=== PATIENT | male | born 1975 | race Caucasian/White ===

== ENCOUNTER 2023-01-19 10:46 | Outpatient (RCR) | payer OTHER, SELFPAY ==
--- NOTE | 2023-01-19 11:58 | PTOPEVAL1 ---
Assessment and note entered by James Griffith Evaluation Information Assessment Status Evaluation Diagnosis left shoulder pain Onset 08/01/22 Subjective Information Pt. reports that he underwent surgery for the carotid artery on 08/01/22. He states that after waking from surgery he could not raise the left arm. He states that he has pain that will shoot down the arm when reaching for his door handle in the car. Pt. reports that he visited with [facility] specialist last week who thought the pt. suffered a brachial plexus injury. 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 Pt. states that he is right hand dominant. He states that he does have some pain with sleeping on the left side. He reports that his goal is to improve the strength of the left arm and to be able to reach overhead. Reported Pain Level Pain Score 2: Self Report Assessment PT Clinical Summary Pt. is a 47 year old male who enters the clinic with left shoulder pain and possible brachial plexus injury. Pt. presents with signficant scapular dyskinesia and noted weakness of the scapular stabilizers on this date. Continued skilled PT is indicated in order to address cervical spine ROM, proximal left u.e. strength and pain reduction. Plan of Care Interventions Electrical Stimulation,Hot Pack/Cold Pack,Manual Therapy,Neuro Re-education,Patient/Caregiver Educati,Therapeutic Activities,Therapeutic Exercise PT Services Indicated Yes Treatment Frequency and 2x/week x 10 visits Duration These treatments will address the objective and functional deficits as defined above. The patient will be advanced safely and appropriately in order for the patient to progress towards his/her prior level of function. Additional exercises will be introduced and as well as a comprehensive home exercise program upon discharge, if needed, ?to ensure carryover of functional gains achieved in the clinic. This treatment plan has been reviewed and agreement upon by the patient.
--- NOTE | 2023-01-19 12:49 | OPREHPOC ---
Outpatient Therapy Plan of Care This is a Multidisciplinary Plan of Care that may contain components documented by all disciplines (PT, OT, and ST.) PT Problem 1 PT Problem #1 Knowledge Deficit PT Goal 1 Goal Independent with a HEP addressing strength and postural awareness Target Visit 2 PT Problem 2 PT Problem #2 Pain PT Goal 1 Goal Reduce pain to 1/10 at worst with all IADL's Target Visit 10 PT Problem 3 PT Problem #3 Impaired Strength PT Goal 1 Goal Pt. will demonstrate 4+/5 gross left shoulder and scapular strength. 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 Target Visit 10
--- NOTE | 2023-02-18 14:56 | OPREHPOC ---
Outpatient Therapy Plan of Care This is a Multidisciplinary Plan of Care that may contain components documented by all disciplines (PT, OT, and ST.) PT Problem 1 PT Problem #1 Knowledge Deficit PT Goal 1 Goal Independent with a HEP addressing strength and postural awareness Target Visit 2 Progress Met PT Problem 2 PT Problem #2 Pain PT Goal 1 Goal Reduce pain to 1/10 at worst with all IADL's Target Visit 10 Progress Partially Met PT Problem 3 PT Problem #3 Impaired Strength PT Goal 1 Goal Pt. will demonstrate 4+/5 gross left shoulder and scapular strength. 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 Target Visit 10 Progress Not Met
--- NOTE | 2023-02-18 14:56 | PTOPPROGNS ---
Assessment and note entered by JT File, PT Evaluation Information Assessment Status Progress Diagnosis left shoulder pain Onset 08/01/22 Subjective Information patient reports 0/10 pain at rest today, and a highest pain of 2/10 in the shoulder in the last week. he reports feeling therapy has been helping since his initial evaluation. Assessment PT Clinical Summary mr. ca presents to skilled PT for his 10th skilled therapy visit today. as of this date, he had made progress in improving shoulder rom and strength, but continues to have pain with lifting the L arm to his side overhead. he has met goal for HEP performance, but continues to lack achievement of remaining goals for skilled PT. however, he has made progress in all other goals. he would benefit from continued skilled PT to address his remaining objective/functional deficits to achieve remaining goals, and return to his prior level functional activity performance and quality of life. Plan of Care Interventions Electrical Stimulation,Hot Pack/Cold Pack,Manual Therapy,Neuro Re-education,Patient/Caregiver Educati,Therapeutic Activities,Therapeutic Exercise PT Services Indicated Yes Treatment Frequency and continue skilled PT 2x weekly for remaining 2 Duration visits on initial POC These treatments will address the objective and functional deficits as defined above. The patient will be advanced safely and appropriately in order for the patient to progress towards his/her prior level of function. Additional exercises will be introduced and as well as a comprehensive home exercise program upon discharge, if needed, ?to ensure carryover of functional gains achieved in the clinic. This treatment plan has been reviewed and agreement upon by the patient.
--- NOTE | 2023-02-25 09:15 | OPREHPOC ---
Outpatient Therapy Plan of Care This is a Multidisciplinary Plan of Care that may contain components documented by all disciplines (PT, OT, and ST.) PT Problem 1 PT Problem #1 Knowledge Deficit PT Goal 1 Goal Independent with a HEP addressing strength and postural awareness Target Visit 2 Progress Met PT Problem 2 PT Problem #2 Pain PT Goal 1 Goal Reduce pain to 1/10 at worst with all IADL's Target Visit 16 Progress Partially Met PT Problem 3 PT Problem #3 Impaired Strength PT Goal 1 Goal Pt. will demonstrate 4+/5 gross left shoulder and scapular strength. 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 Target Visit 16 Progress Not Met Comment continue
--- NOTE | 2023-02-25 09:16 | PTOPREEVAL ---
Assessment and note entered by JT File, PT Evaluation Information Assessment Status Re-evaluation Diagnosis left shoulder pain Onset 08/01/22 Subjective Information patient reports he is doing better overall, but continues to have pain in the L Shoulder with raising to arm to his side. he reports he also continues to have tingling in the L UE down to the middle fingers of the L hand. Reported Pain Level Pain Score 2,2: Self Report Assessment PT Clinical Summary mr. ca presents to skilled PT services today for his 12th skilled therapy visit. patient has improved L shoulder rom, maintained cervical rom, improved L shoulder/UE strength, and reports decreased pain/symptoms overall. he continues to display signs and symptoms of L cervical radiculopathy and L RTC syndrome with weakness in the L shoulder/UE, paresthesias in the L arm, and positive shoulder and cervical special testing. he would benefit from continue skilled PT given the amount of progress he has made thus farin skilled PT. 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 Plan of Care Interventions Electrical Stimulation,Hot Pack/Cold Pack,Manual Therapy,Neuro Re-education,Patient/Caregiver Educati,Therapeutic Activities,Therapeutic Exercise PT Services Indicated Yes Treatment Frequency and continue skilled PT 2x weekly for 6 more visits Duration These treatments will address the objective and functional deficits as defined above. The patient will be advanced safely and appropriately in order for the patient to progress towards his/her prior level of function. Additional exercises will be introduced and as well as a comprehensive home exercise program upon discharge, if needed, ?to ensure carryover of functional gains achieved in the clinic. This treatment plan has been reviewed and agreement upon by the patient.
--- NOTE | 2023-03-18 08:36 | OPREHPOC ---
Outpatient Therapy Plan of Care This is a Multidisciplinary Plan of Care that may contain components documented by all disciplines (PT, OT, and ST.) PT Problem 1 PT Problem #1 Knowledge Deficit PT Goal 1 Goal Independent with a HEP addressing strength and postural awareness Target Visit 2 Progress Met PT Problem 2 PT Problem #2 Pain PT Goal 1 Goal Reduce pain to 1/10 at worst with all IADL's Target Visit 28 Progress Partially Met PT Problem 3 PT Problem #3 Impaired Strength PT Goal 1 Goal Pt. will demonstrate 4+/5 gross left shoulder and scapular strength. Target Visit 28 Progress Partially Met Comment continue PT Goal 2 Goal Pt. 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 met new goal - patient to be able to lift 10lbs to his side in abduction/scaption to shoulder/head level to lift feed buckets at farm, and groceries at home. new goal - patient to perform pain free shoulder abduction to 140 degrees or better to reach high up to his side to complete tasks at home and on farm. Target Visit 28 Progress Partially Met Comment continue
--- NOTE | 2023-03-18 08:37 | PTOPREEVAL ---
Assessment and note entered by JT File, PT Evaluation Information Assessment Status Re-evaluation Diagnosis left shoulder pain Onset 08/01/22 Subjective Information patient reports the L shoulder and neck are better . he reports he contiunes to have some pain with use of the arm, but at rest he has no neck or shoulder pain. he reports he just recently saw the MD who suggested he continued skilled PT for 6 more weeks. Reported Pain Level Pain Score 0,0: Self Report Assessment PT Clinical Summary mr. ca presents to skilled PT for his 18th skilled PT visit. he continues to have pain with overhead use of the L arm to his side, and is weak in the L shoulder with abduction/scaption. 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 he has made progress since his last re-evaluation, and continues to be a good candidate for skilled PT as he is motivated to improve, displays progression in strength and rom, and is performing activities with less pain/ resistriction. Plan of Care Interventions Electrical Stimulation,Hot Pack/Cold Pack,Manual Therapy,Neuro Re-education,Patient/Caregiver Educati,Therapeutic Activities,Therapeutic Exercise PT Services Indicated Yes Treatment Frequency and continue skilled PT 2x weekly for 12 more visits Duration These treatments will address the objective and functional deficits as defined above. The patient will be advanced safely and appropriately in order for the patient to progress towards his/her prior level of function. Additional exercises will be introduced and as well as a comprehensive home exercise program upon discharge, if needed, ?to ensure carryover of functional gains achieved in the clinic. This treatment plan has been reviewed and agreement upon by the patient.
== END 2023-04-15 20:00 | disposition still patient (30) ==
LOC: CHSPT 10:46
PROVIDERS: Visit Provider Physician Assistant
DX: G54.0 Brachial plexus disorders (principal); M62.9 Disorder of muscle, unspecified
CPT/HCPCS: 97014; 97110; 97140; 97161; G0283

== ENCOUNTER 2023-04-20 07:30 | Outpatient (RCR) | payer OTHER, SELFPAY ==
[2023-04-22 07:30] VITALS: BP_SYST 160
--- NOTE | 2023-04-22 10:17 | OPREHPOC ---
Outpatient Therapy Plan of Care This is a Multidisciplinary Plan of Care that may contain components documented by all disciplines (PT, OT, and ST.) PT Problem 1 PT Problem #1 Knowledge Deficit PT Goal 1 Goal Independent with a HEP addressing strength and postural awareness Target Visit 2 Progress Met PT Problem 2 PT Problem #2 Pain PT Goal 1 Goal Reduce pain to 1/10 at worst with all IADL's Target Visit 34 Progress Partially Met Comment continue PT Problem 3 PT Problem #3 Impaired Strength PT Goal 1 Goal Pt. will demonstrate 4+/5 gross left shoulder and scapular strength. Target Visit 34 Progress Partially Met Comment continue Comment continue PT Goal 2 Goal Pt. 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 met new goal - patient to be able to lift 10lbs to his side in abduction/scaption to shoulder/head level to lift feed buckets at farm, and groceries at home. -not met new goal - patient to perform pain free shoulder abduction to 140 degrees or better to reach high up to his side to complete tasks at home and on farm. -not met Target Visit 34 Progress Partially Met Comment continue Comment continue
--- NOTE | 2023-04-22 10:17 | PTOPPROG ---
Assessment and note entered by Dinorah Benavides, PT Evaluation Information Assessment Status Progress Diagnosis L shoulder pain Onset 08/01/22 Subjective Information Ruiz Beaver reports his left shoulder is feeling much better compared to when he first started however, he still has pain when he lifts his arm out to the side. He had shooting pain in the left arm a little over a week ago when he tried to lift his arm out to wave to a neighbor. He also notes shooting pain occasionally when he reaches for the door handle. When he gets shooting pain, he notes numbness and tingling in the left middle and ring finger. He notes difficulty with carrying and lifting heavier objects which leads to limitations with job tasks. Assessment PT Clinical Summary Ruiz Beaver has completed 28 skilled PT visits for cervical and left shoulder pain following a carotid artery surgery on 08/01/22. He reports his pain and strength is better overall however, he still notes shooting pain followed by parathesias in the left middle and ring finger with shoulder abduction. He is having difficulty with carrying and lifting heavier items as well as reaching to the side. He objectively demonstrates improved left elbow and shoulder strength as well as improved cervical and shoulder AROM. He is still demonstrating decreased left shoulder abduction, middle trapezius, and lower trapezius strength, painful and decreased left shoulder abduction AROM , and positive special tests for left shoulder impingement and rotator cuff tendonitis/ tendonopathy. He demonstrates functional weakness with waist to shoulder and shoulder to overhead lifts. He will continue to benefit from skilled PT to further address functional strength deficits. Plan of Care Interventions Electrical Stimulation,Hot Pack/Cold Pack,Manual Therapy,Neuro Re-education,Patient/Caregiver Educati,Therapeutic Activities,Therapeutic Exercise PT Services Indicated Yes Treatment Frequency and We would like to continue skilled PT 2 times a Duration week for 4 visits then 1 time a week for 2 visits to total 6 additional visits. These treatments will address the objective and functional deficits as defined above. The patient will be advanced safely and appropriately in order for the patient to progress towards his/her prior level of function. Additional exercises will be introduced and as well as a comprehensive home exercise
[2023-05-11 07:45] VITALS: BP_SYST 160
--- NOTE | 2023-05-11 09:01 | PTOPPROG ---
Assessment and note entered by Dinorah Benavides, PT Evaluation Information Assessment Status Progress Diagnosis L shoulder pain Onset 08/01/22 Subjective Information Ruiz Beaver reports his left shoulder continues to be much better comared to when he first started physical therapy however, he continues to have pain when he lifts his arm out to the side. He has occasional shooting pain in the left arm when he tries to lift his arm even just to wave to his neighbor or to pull his car door shut. When the shooting pain occurs, he notes numbness and tingling in the left middle and ring finger. He also notes ongoing difficulty with carrying and lifting heavier objects which leads to limitations with job tasks. Assessment PT Clinical Summary Ruiz Beaver has completed 32 skilled PT visits for cervical and left shoulder pain following a carotid artery surgery on 08/01/22. He reports his pain and strength is better overall however, he still notes shooting pain followed by parathesias in the left middle and ring finger with shoulder abduction. He is having difficulty with carrying and lifting heavier items as well as reaching to the side. He objectively demonstrates improved left elbow and shoulder strength as well as improved cervical and shoulder AROM. He is still demonstrating decreased left shoulder abduction, middle trapezius, and lower trapezius strength; painful and decreased left shoulder abduction AROM; and positive special tests for left shoulder impingement and rotator cuff tendinitis/tendonopathy. He demonstrates functional weakness with waist to shoulder and shoulder to overhead lifts. He will benefit from skilled PT to further address functional strength deficits. Plan of Care Interventions Manual Therapy,Neuro Re-education,Patient/ Caregiver Educati PT Services Indicated Yes Treatment Frequency and 1 time a week for 4 visits. Duration These treatments will address the objective and functional deficits as defined above. The patient will be advanced safely and appropriately in order for the patient to progress towards his/her prior level of function. Additional exercises will be introduced and as well as a comprehensive home exercise program upon discharge, if needed, ?to ensure carryover of functional gains achieved in the clinic. This treatment plan has been reviewed and agreement upon by the patient.
--- NOTE | 2023-06-09 08:31 | OPREHPOC ---
Outpatient Therapy Plan of Care This is a Multidisciplinary Plan of Care that may contain components documented by all disciplines (PT, OT, and ST.) PT Problem 1 PT Problem #1 Knowledge Deficit PT Goal 1 Goal Independent with a HEP addressing strength and postural awareness Target Visit 2 Progress Met PT Problem 2 PT Problem #2 Pain PT Goal 1 Goal Reduce pain to 1/10 at worst with all IADL's Target Visit 34 Progress Met PT Problem 3 PT Problem #3 Impaired Strength PT Goal 1 Goal Pt. will demonstrate 4+/5 gross left shoulder and scapular strength. Target Visit 34 Progress Met PT Goal 2 Goal Pt. 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 met new goal - patient to be able to lift 10lbs to his side in abduction/scaption to shoulder/head level to lift feed buckets at farm, and groceries at home. -met new goal - patient to perform pain free shoulder abduction to 140 degrees or better to reach high up to his side to complete tasks at home and on farm. -met Target Visit 34 Progress Met
--- NOTE | 2023-06-09 08:31 | PTOPDC ---
Assessment and note entered by Dinorah Benavides, PT Evaluation Information Assessment Status Discharge Diagnosis L Shoulder Pain Onset 06/09/23 Subjective Information Ruiz Beaver reports his left shoulder is doing much better overall compared to shortly after his surgery. He still gets occasional pain when lifting his left arm out to the side and overhead but pain is no greater than 1/10. He also notes mild decreased sensation around his incision site. Reported Pain Level Pain Score 0: Self Report Assessment PT Clinical Summary Ruiz Beaver has completed 34 skilled PT visits for cervical and left shoulder pain following a carotid artery surgery on 08/01/22. He is reporting overall improvments with minimal pain and improved function noted. He demonstrates improved left shoulder active ROM, improved left shoulder strength, and improved functional strength with box lifts. He is independent in a home exercise program to continue strengthening. He will be discharged to his [facility]. Plan of Care PT Services Indicated No
== END 2023-06-09 15:41 | disposition home or self-care (01) ==
LOC: CHSPT 07:30
PROVIDERS: Visit Provider Physician Assistant
DX: G54.0 Brachial plexus disorders; M62.9 Disorder of muscle, unspecified
CPT/HCPCS: 97110; 97140; 97750